=== PATIENT | male | born 1990 | race African-American/Black ===

== ENCOUNTER 2017-05-27 09:53 | Emergency (ER) | payer SELFPAY ==
[~2017-05-27] VITALS: Ht 167.6 cm; Wt 62.2 kg
[~2017-05-27 09:53] MED LIST: BACTRIM,SEPT1 TABLET PO; FLEXERIL10 MG PO; MOTRIN800 MG PO
[2017-05-27 11:06] LABS: ADD MIUA? YES; BILIRUBIN NEGATIVE; BLOOD NEGATIVE; COLOR YELLOW ((YELLOW)); GLUCOSE (STRIP) NEGATIVE; KETONES NEGATIVE; LEUKOCYTES TRACE; NITRITE NEGATIVE; PROTEIN (STRIP) NEGATIVE; SPECIFIC GRAVITY 1.024 (1.000-1.030)
[2017-05-27 11:11] LABS: BACTERIA NONE SEEN /HPF; EPITHELIAL CELLS RARE /HPF; MUCUS TRACE /LPF; RED BLOOD CELLS 0-5 /HPF (0-5); UCUL ADDED? YES
[2017-05-27] MEDS ORDERED: NAPROSYN500 MG PO (11:29)
[2017-05-27] MEDS ORDERED: FLEXERIL10 MG PO (11:29)
[2017-05-27 12:13] VITALS: BP 114/77
[2017-05-28 13:01] LABS: CHLAMYDIA TRACHOMATIS NEGATIVE; NEISSERIA GONORRHOEAE NEGATIVE
== END 2017-05-27 12:26 | disposition home or self-care (01) ==
LOC: EME 09:53
PROVIDERS: Emergency Medicine
DX: M54.6 Pain in thoracic spine (principal); Z72.0 Tobacco use
CPT/HCPCS: 72070; 81003; 87086; 87491; 87591; 99281; 99284

== ENCOUNTER 2018-01-23 11:30 | Emergency (ER) | payer SELFPAY ==
[~2018-01-23] VITALS: Ht 170.2 cm; Wt 59.7 kg
[~2018-01-23 11:30] MED LIST changes: +NAPROSYN500 MG PO
[2018-01-23] MEDS ORDERED: MOTRIN600 MG PO (15:18)
[2018-01-23] MEDS ORDERED: ATIVAN2 MG PO (15:18)
[2018-01-23] MEDS ORDERED: PREDNISONE20 MG PO (15:18)
[2018-01-23 15:39] VITALS: BP 114/76
== END 2018-01-23 15:42 | disposition home or self-care (01) ==
LOC: EME 11:30
DX: M62.838 Other muscle spasm (principal)
CPT/HCPCS: 72040; 99281; 99284; J1885; J2060; J7512